=== PATIENT | female | born 1985 | race Caucasian/White ===

== ENCOUNTER 2017-07-26 19:01 | Observation (INO) ==
[2017-07-26] MEDS: Ondansetron 4 MG/2 ML VIAL IVP SCH (23:31)
[2017-07-26] MEDS: *HR* HYDROmorphone (PF) 1 MG/ML SYRINGE IVP PRN (23:32)
[2017-07-26] MEDS: cefOXitin 2,000 MG in D5% in Water (Mini-Bag+) 100 ML IVPB SCH (23:33)
[2017-07-26] MEDS: 0.9 % Sodium Chloride 1,000 ML IVC SCH (23:34)
[2017-07-27] MEDS: *HR* HYDROmorphone (PF) 1 MG/ML SYRINGE IVP PRN ×10 (01:58→23:40)
[2017-07-27] MEDS: Ondansetron 4 MG/2 ML VIAL IVP SCH (04:12)
[2017-07-27 07:12] LABS: Basophils # 0.1 K/mcL (0.0-0.2); Basophils % 0.4 %; Eosinophils # 0.4 K/mcL (0.0-0.6); Eosinophils % 2.7 %; Hematocrit 40.1 % (35.3-44.9); Hemoglobin 12.9 g/dL (11.5-15.4); Lymphocytes % 14.4 %; Mean Corpuscular HGB Conc 32.2 g/dL (31.6-35.5); Mean Corpuscular Hemoglobin 26.9 pg (28.0-33.3); Mean Corpuscular Volume 83.7 fL (83.0-100.0); Mean Platelet Volume 9.7 fL (9.4-12.4); Monocytes % 7.2 %; Neutrophils # 10.3 K/mcL (1.6-8.9); Platelet Count 314 K/mcL (140-400); Red Blood Count 4.79 M/mcL (3.82-4.97); Red Cell Distribution Width 13.8 % (11.5-14.5); Segmented Neutrophils % 74.3 %
[2017-07-27 07:17] LABS: Alanine Aminotransferase 11 Units/L (0-55); Albumin 2.9 g/dL (3.5-5.0); Albumin/Globulin Ratio 0.7 (1.1-2.2); Alkaline Phosphatase 85 Units/L (38-126); Amylase 71 Units/L (25-125); Aspartate Amino Transferase 14 Units/L (5-34); BUN/Creatinine Ratio 13 (6-26); Bilirubin,Direct 0.3 mg/dL (0.0-0.5); Bilirubin,Indirect 0.3 mg/dL (0.0-1.2); Bilirubin,Total 0.6 mg/dL (0.2-1.2); Blood Urea Nitrogen 10 mg/dL (7-20); Calcium 8.8 mg/dL (8.6-10.8); Carbon Dioxide 23 mEq/L (19-29); Chloride 106 mEq/L (98-109); Globulin 4.3 g/dL (2.4-3.5); Glucose 83 mg/dL (70-99); Lipase 17 Units/L (8-78); Osmolality,Calculated 280 (280-300); Potassium 3.8 mEq/L (3.5-4.5); Sodium 136 mEq/L (136-145); Total Protein 7.2 g/dL (6.0-8.3); eGFR For African Americans > 60 (> 60); eGFR For Non-African Americans > 60 (> 60)
[2017-07-27] MEDS ORDERED: Ondansetron 4 MG/2 ML VIAL IVP PRN ×2 (08:15→15:17)
[2017-07-27] MEDS: cefOXitin 2,000 MG in D5% in Water (Mini-Bag+) 100 ML IVPB SCH ×3 (08:18→23:40)
[2017-07-27] MEDS: 0.9 % Sodium Chloride 1,000 ML IVC SCH ×2 (08:21→15:54)
[2017-07-27] MEDS ORDERED: Acetaminophen 325 MG TABLET PO PRN ×2 (10:27→15:17)
[2017-07-27] MEDS ORDERED: *HR* OxyCODONE/APAP 5/325 TABLET PO PRN ×2 (10:27→15:17)
--- NOTE | 2017-07-27 10:32 | Event Note ---
Date of Encounter: 07/27/17 Time of Encounter: 10:30 Patient has been seen and evaluated by Dr. Harrington as an outpatient for symptomatic cholelithiasis. She presented to the ED last evening with worsening of symptoms. See History and Physical completed in [facility] on 07/21/[address] Harrington. A copy has been placed at the nurses station in the patient's folder as well as in the medical records folder to be scanned into medical records.
[2017-07-27] MEDS ORDERED: *HR* Midazolam HCl 2 MG/2 ML VIAL ONE (12:35)
[2017-07-27] MEDS ORDERED: *HR* Propofol 200 MG/20 ML VIAL IVP ONE (12:35)
[2017-07-27] MEDS ORDERED: *HR* FentaNYL (PF) 100 MCG/2 ML VIAL ONE ×2 (12:35→13:29)
[2017-07-27] MEDS ORDERED: *HR* Succinylcholine 200 MG/10 ML VIAL IVP ONE (12:36)
[2017-07-27] MEDS ORDERED: Lidocaine -MPF 2% 2 ML VIAL ONE (12:36)
[2017-07-27] MEDS ORDERED: Neostigmine Methylsulfate 3 MG/3 ML SYRINGE ONE (12:39)
[2017-07-27] MEDS ORDERED: *HR* Rocuronium Bromide 50 MG/5 ML VIAL ONE (12:39)
[2017-07-27] MEDS ORDERED: Lidocaine -MPF 4% 5 ML AMPUL ONE (12:39)
[2017-07-27] MEDS ORDERED: Dexamethasone 4 MG/ML VIAL ONE (12:39)
[2017-07-27] MEDS ORDERED: Ondansetron 4 MG/2 ML VIAL ONE (12:39)
[2017-07-27] MEDS ORDERED: Albuterol Neb 1.25 MG/3 ML VIAL IH ONE (12:46)
--- NOTE | 2017-07-27 12:46 | Anesthesia Evaluation PreOp ---
Date of Encounter: 07/27/17 Time of Encounter: 12:45 - Past History Planned Operation: la mateo Cardiac History: Denies any Significant Hx Pulmonary History: Smoker INCLUSION TEACHER History: Denies Any Significant HX Other Medical History: Denies Any Significant HX Anesthesia History: No Prior Anesthetic Complications, Past Anesthesia Alcohol Use: none Drug use: none Medications and Allergies Dicyclomine [Bentyl] 10 - 20 mg PO QID PRN #30 capsule 07/07/17 [Rx] Ondansetron ODT [Zofran ODT] 4 mg SL Q6HR PRN #8 tab.rapdis 07/07/17 [Rx] 3 Allergy/AdvReac Type Severity Reaction Status Date / Time No Known Allergies Allergy Verified 07/26/17 14:30 - Meds/Allergy Pre-op Review Medications Reviewed: Yes Allergies Reviewed: Yes Beta Blockers on Current Med List: No Anesthesia Results - Labs 07/27/17 06:06 07/27/17 06:06 Anesthesia Exam Selected Entries 07/27/17 10:31 Temperature 99.3 F Pulse Rate 70 Respiratory Rate 18 Blood Pressure 124/73 O2 Sat by Pulse Oximetry 98 Height: 104 kg NPO (# of Hours): over 8 hours - HEENT Pupil (Motor): Pupils equal Mallampati: I Teeth: Poor dentition Oral Opening: Greater than 3 - Cardiac Rhythm: Regular Murmur: None - Pulmonary Breath Sounds: bilateral Clear Respiratory Effort: Symmetrical Anesthesia Assess/Plan ASA Score: 2 Modified [place] Scale for Level of Consciousness: Cooperative, oriented, and tranquil Anesthetic Plan: General Monitoring Plan: Standard Monitors Recovery Plan: PACU
[2017-07-27] MEDS ORDERED: Albuterol 2.5 MG/3 ML NEBULIZER ONE (12:51)
--- NOTE | 2017-07-27 13:01 | History & Physical Report ---
Date of Encounter: 07/27/17 Time of Encounter: 13:00 24 Hour HP Update - Instructions Instructions: If the History and Physical is less than 30 days old and was completed prior to A.M. admission and or procedure and has NOT been updated on calendar day of procedure please complete this update prior to performing procedure. - Update Patient reports changes in Medical Condition: No Changes in examination, assessment, or condition: No Changes in Medication: No Preop tests/diagnostics Reviewed: Yes Surgery Remains Indicated: Yes Consent for Planned Operative Procedure(s) Verified: Yes - Pre-Operative Checklist Preoperative Checklist Indicated: Yes Prophylactic Antibiotic Ordered: Yes Home Medications Include Beta Willy: No Is VTE Prophylaxis Indicated?: Yes
--- NOTE | 2017-07-27 13:03 | General Surg History&Physical ---
Date of Encounter: 07/27/17 Time of Encounter: 13:00 Assessment and Plan (1) Acute cholecystitis Current Visit: Yes Status: Acute The assessment and plan as outlined above was discussed with the patient and/or family members who expressed understanding and agreement. All questions were answered. Cholelithiasis and acute cholecystitis. The patient is been treated with 2 doses of preoperative antibiotic now presents for urgent cholecystectomy History of Present Illness Chief complaint: Abdominal pain HPI: Ms. Reid is a 32 year old female Who is scheduled for elective cholecystectomy for cholelithiasis. She presented to the emergency room with acute right upper quadrant pain and leukocytosis. Diagnosis of acute cholecystitis was made. Patient was admitted for antibiotics for urgent cholecystectomy. Past Med Surg Social Fam HX - Past Medical History Medical history: no medical history, other Psychiatric history: no psych history - Social History Smoking Status: Current every day smoker Smokeless Tobacco Status: No Alcohol use: none Drug use: none - Family History Mother Living Status: Still Living Father Living Status: Cause of : unknown Medications and Allergies Dicyclomine [Bentyl] 10 - 20 mg PO QID PRN #30 capsule 07/07/17 [Rx] Ondansetron ODT [Zofran ODT] 4 mg SL Q6HR PRN #8 tab.rapdis 07/07/17 [Rx] 3 Allergy/AdvReac Type Severity Reaction Status Date / Time No Known Allergies Allergy Verified 07/26/17 14:30 Review of Systems All systems PM: A 10-system review of systems was performed and is negative for pertinent findings except as documented above in the HPI. General Surgery Exam Initial Vital Signs Temp Pulse Resp BP Pulse Ox 98.7 F 65 16 115/73 96 07/26/17 20:53 07/26/17 20:53 07/26/17 20:53 07/26/17 20:53 07/26/17 20:53 - General physical appearance moderate pain - ENT normal pinna, normal nares, normal mucosa, no hearing loss, no congestion - Respiratory normal expansion, normal respiratory effort, clear to percussion, clear to auscultation - Abdomen Abdomen general surgery: Present: tender Abdominal Tenderness: Present: RUQ - Neurologic Present: CN 2-12 grossly intact, normal coordination, normal sensation - Psychiatric Psychiatric general surgery: Present: appropriate, oriented to person, oriented to place, oriented to time, speech is normal, memory intact Results - Labs 07/27/17 06:06 07/27/17 06:06 Abnormal lab results WBC 13.8 K/mcL (4.3-11.1) H 07/27/17 06:06 MCH 26.9 pg (28.0-33.3) L 07/27/17 06:06 Neutrophils # 10.3 K/mcL (1.6-8.9) H 07/27/17 06:06 POC Glucose 93 (58-89) H 07/27/17 06:00 Albumin 2.9 g/dL (3.5-5.0) L 07/27/17 06:06 Globulin 4.3 g/dL (2.4-3.5) H 07/27/17 06:06 Albumin/Globulin Ratio 0.7 (1.1-2.2) L 07/27/17 06:06 Diabetes panel 07/27/17 Range/Units 06:06 Sodium 136 (136-145) mEq/L Potassium 3.8 (3.5-4.5) mEq/L Chloride 106 (98-109) mEq/L Carbon Dioxide 23 (19-29) mEq/L BUN 10 (7-20) mg/dL Creatinine 0.75 (0.57-1.11) mg/dL Glucose 83 (70-99) mg/dL Calcium 8.8 (8.6-10.8) mg/dL AST 14 (5-34) Units/L ALT 11 (0-55) Units/L Alkaline Phosphatase 85 (38-126) Units/L Albumin 2.9 L (3.5-5.0) g/dL Calcium panel 07/27/17 Range/Units 06:06 Calcium 8.8 (8.6-10.8) mg/dL Albumin 2.9 L (3.5-5.0) g/dL Pituitary panel 07/27/17 Range/Units 06:06 Sodium 136 (136-145) mEq/L Potassium 3.8 (3.5-4.5) mEq/L Chloride 106 (98-109) mEq/L Carbon Dioxide 23 (19-29) mEq/L BUN 10 (7-20) mg/dL Creatinine 0.75 (0.57-1.11) mg/dL Glucose 83 (70-99) mg/dL Calcium 8.8 (8.6-10.8) mg/dL Adrenal panel 07/27/17 Range/Units 06:06 Sodium 136 (136-145) mEq/L Potassium 3.8 (3.5-4.5) mEq/L Chloride 106 (98-109) mEq/L Carbon Dioxide 23 (19-29) mEq/L BUN 10 (7-20) mg/dL Creatinine 0.75 (0.57-1.11) mg/dL Glucose 83 (70-99) mg/dL Calcium 8.8 (8.6-10.8) mg/dL Total Bilirubin 0.6 (0.2-1.2) mg/dL AST 14 (5-34) Units/L ALT 11 (0-55) Units/L Alkaline Phosphatase 85 (38-126) Units/L Albumin 2.9 L (3.5-5.0) g/dL All other labs normal.
[2017-07-27] MEDS ORDERED: *HR* HYDROmorphone 2 MG/ML SYRINGE ONE (13:23)
[2017-07-27] MEDS ORDERED: Dexamethasone 4 MG/ML VIAL IVP ONE (13:34)
[2017-07-27] MEDS ORDERED: *HR* HYDROmorphone (PF) 1 MG/ML SYRINGE IVP PRN (13:34)
[2017-07-27] MEDS ORDERED: Ondansetron 4 MG/2 ML VIAL IVP ONE (13:34)
[2017-07-27] MEDS ORDERED: *HR* Promethazine 25 MG/ML VIAL IVP PRN (13:34)
[2017-07-27] MEDS ORDERED: *HR* Labetalol 20 MG/4 ML SYRINGE IVP PRN (13:34)
[2017-07-27] MEDS ORDERED: *HR* Meperidine 25 MG/ML SYRINGE IVP PRN (13:34)
[2017-07-27] MEDS ORDERED: Ketorolac 15 MG/ML VIAL IVP ONE (13:34)
--- NOTE | 2017-07-27 14:20 | Operative Note ---
Date of procedure: 07/27/17 Pre-op diagnosis: Acute cholecystitis, cholelithiasis Post-op diagnosis: same Procedure: Laparoscopic cholecystectomy, cholangiogram Anesthesia: MADELYN Surgeon: Samuel Harrington Estimated blood loss (cc): 20 Specimen: Gallbladder and contents Condition: stable Disposition: PACU Procedure in Detail: Laparoscopic cholecystectomy and intraoperative cholangiogram Operative procedure after informed consent and appropriate patient identification timeout the patient was taken to the major operating suite and placed supine position given adequate general endotracheal anesthesia the abdomen is prepped and draped in sterile fashion utilizing ChloraPrep standard draping techniques timeout was taken patient is identified. I made a vertical midline incision below the umbilicus dissected down to level of fascia there are 2 traction stitches placed in the abdominal cavity was entered visually. A Rhodes trocar was placed in the abdomen and the abdomen was insufflated to 15 mmHg pressure CO2 the gallbladder was visualized. A placement 11 port in the subxiphoid area and 2 5 mm ports in the subcostal area. . The gallbladder was completely obstructed and required decompression The gallbladder was grasped and elevated. A variety of blunt and sharp dissection techniques were used to isolate the cystic duct and cystic artery. The cystic artery was controlled with 2 surgical clips proximally and one distally and it was divided I placed a surgical clip on the neck the gallbladder and obtained an intraoperative cholangiogram using 10 mL of Isovue. Intraoperative cholangiogram was normal. The cholangiocatheter was removed and the cystic duct was controlled with 2 surgical clips proximally and was divided the gallbladder was removed from the gallbladder fossae using electrocautery. The gallbladder was removed through the #11 port site using a specimen bag. I replaced the #11 port and irrigated with copious amounts of antibiotic containing solution. There is no evidence of bleeding or bile leak. All trochars were removed. Fascia was closed with 0 Vicryl skin with 2-0 and 4-0 Vicryl she tolerated the procedure well and was transferred to recovery in stable condition
--- NOTE | 2017-07-27 15:03 | Anesthesia Evaluation Post Op ---
Date of Encounter: 07/27/17 Time of Encounter: 15:00 - Vital Signs Vital Signs: Selected Entries 07/27/17 14:52 Temperature 98.1 F Pulse Rate 86 Respiratory Rate 16 Blood Pressure 122/64 O2 Sat by Pulse Oximetry 93 - Lungs Lungs: Clear Ascult./Percussion - Airway Airway: Non-obstructed - Cardiovascular Regular Rate - Mental Status Mental Status: Alert & Oriented, Answers Appropriately - Nausea Vomiting Nausea Vomiting: Not Present - Hydration Hydration: NPO - Discharge PostOp Status: Transfer Patient to floor
[2017-07-28] MEDS: 0.9 % Sodium Chloride 1,000 ML IVC SCH (02:41)
[2017-07-28] MEDS: *HR* HYDROmorphone (PF) 1 MG/ML SYRINGE IVP PRN ×3 (02:41→08:12)
[2017-07-28 04:55] LABS: Basophils % 0.1 %; Eosinophils % 0.1 %; Hemoglobin 11.6 g/dL (11.5-15.4); Immature Granulocytes % 0.6 % (0-4); Lymphocytes # 1.1 K/mcL (0.6-4.6); Lymphocytes % 6.5 %; Mean Corpuscular HGB Conc 32.2 g/dL (31.6-35.5); Mean Corpuscular Hemoglobin 26.9 pg (28.0-33.3); Mean Corpuscular Volume 83.5 fL (83.0-100.0); Mean Platelet Volume 9.7 fL (9.4-12.4); Neutrophils # 14.8 K/mcL (1.6-8.9); Platelet Count 287 K/mcL (140-400); Red Blood Count 4.31 M/mcL (3.82-4.97); Red Cell Distribution Width 13.4 % (11.5-14.5); Segmented Neutrophils % 86.7 %
[2017-07-28 05:19] LABS: Alanine Aminotransferase 31 Units/L (0-55); Albumin 2.6 g/dL (3.5-5.0); Albumin/Globulin Ratio 0.6 (1.1-2.2); Alkaline Phosphatase 79 Units/L (38-126); Aspartate Amino Transferase 37 Units/L (5-34); BUN/Creatinine Ratio 12 (6-26); Bilirubin,Total 0.3 mg/dL (0.2-1.2); Blood Urea Nitrogen 8 mg/dL (7-20); Calcium 8.8 mg/dL (8.6-10.8); Carbon Dioxide 22 mEq/L (19-29); Chloride 107 mEq/L (98-109); Globulin 4.3 g/dL (2.4-3.5); Glucose 117 mg/dL (70-99); Osmolality,Calculated 279 (280-300); Potassium 4.5 mEq/L (3.5-4.5); Sodium 135 mEq/L (136-145); Total Protein 6.9 g/dL (6.0-8.3); eGFR For African Americans > 60 (> 60); eGFR For Non-African Americans > 60 (> 60)
[2017-07-28] MEDS: cefOXitin 2,000 MG in D5% in Water (Mini-Bag+) 100 ML IVPB SCH (07:41)
[2017-07-28] MEDS ORDERED: *HR* OxyCODONE/APAP 10/325 TABLET PO PRN (10:25)
[2017-07-28] MEDS ORDERED: Ibuprofen 800 MG TABLET PO SCH (10:30)
--- NOTE | 2017-07-28 10:40 | Discharge Summary ---
<Aminata Mullins Juan J - Last Filed: 07/28/17 10:35> Date of Encounter: 07/28/17 Time of Encounter: 10:20 - Discharge Diagnosis (1) Acute cholecystitis Priority: Primary Status: Resolved - Discharge Medications Prescriptions: OxyCODONE/APAP 10/325 [Percocet 10/325 MG] 1 each PO Q4HR PRN #30 tab PRN Reason: Moderate Pain Docusate [Colace] 100 mg PO BID #30 capsule Ibuprofen [Motrin] 800 mg PO TID #50 tab Home Medications: Dicyclomine [Bentyl] 10 - 20 mg PO QID PRN #30 capsule 07/07/17 [Rx] Ondansetron ODT [Zofran ODT] 4 mg SL Q6HR PRN #8 tab.rapdis 07/07/17 [Rx] Docusate [Colace] 100 mg PO BID #30 capsule 07/28/17 [Rx] Ibuprofen [Motrin] 800 mg PO TID #50 tab 07/28/17 [Rx] OxyCODONE/APAP 10/325 [Percocet 10/325 MG] 1 each PO Q4HR PRN #30 tab 07/28/17 [ Rx] Allergies/Adverse Reactions: 3 Allergy/AdvReac Type Severity Reaction Status Date / Time No Known Allergies Allergy Verified 07/26/17 14:30 General Surgery Exam Initial Vital Signs Temp Pulse Resp BP Pulse Ox 98.7 F 65 16 115/73 96 07/26/17 20:53 07/26/17 20:53 07/26/17 20:53 07/26/17 20:53 07/26/17 20:53 - General physical appearance well developed, well nourished, no distress - Eyes normal ocular movement - ENT normal mucosa, atraumatic, normocephalic - Neck trachea midline - Respiratory normal respiratory effort, clear to auscultation - Cardiovascular Cardiovascular exam: Present: RRR - Abdomen Abdomen general surgery: Present: bowel sounds present, soft, tender (Expected postoperative tenderness) - Incision Incision: Present: clean and dry, intact - Integumentary Integumentary general surgery: Present: warm and dry - Neurologic Present: CN 2-12 grossly intact - Psychiatric Psychiatric general surgery: Present: appropriate, oriented to person, oriented to place, oriented to time, speech is normal, memory intact Date of admission: 07/26/17 20:29 Primary care physician: Hiwot Enriquez Discharging clinician: Samuel Harrington (Renea Mullins) Anticipated date of discharge: 07/28/17 - Patient Status Disposition: Home, Self-Care Condition: Good Functional capacity at discharge: independent ambulation Overall status at discharge: patient is progressing back to baseline - Discharge Instructions Instructions: Cholecystitis (DC) Follow Up With: Aminata Mullins CNP [Advanced Practice Nurse] - 08/09/17 11:30 am (surgery follow-up) Forms: Work/School Release Additional Instructions: #1 may shower 07/28/17, no tub bath for 2 weeks #2 wash incisions with soap and water and pat dry daily #3 no lifting, pushing, pulling more than 15 pounds for the next 2 weeks #4 no driving until off narcotics for 24 hours and able to safely react in the car #5 may climb stairs - Diet and Activity Activity: other (See additional instructions above) Diet: advance to your usual diet - Hospital Course Hospital course: Ms. Reid is a 32 year old female who presented to the hospital with right upper quadrant abdominal pain with associated nausea and vomiting. She had previously been seen in the office by Dr. Harrington for symptomatic cholelithiasis. She was scheduled for outpatient surgery but reported to the emergency department with worsening symptoms. The patient was found to have acute cholecystitis and she was admitted to the hospital under Dr. Harrington's service. She was started on IV antibiotics. She was taken to the operating room for a laparoscopic cholecystectomy. On postoperative day #1, she is feeling much better and her pain has improved. Her post surgical pain is controlled with Percocet and ibuprofen. Her vital signs are stable and she is afebrile. She is voiding and ambulating without difficulty. She is tolerating a regular diet. We will begin discharge planning to home and plan for outpatient follow- up in the next 10-14 days. - Time Spent with Patient Total time spent providing and/or coordinating discharge services: Less than 30 minutes Labs on day of discharge: Labs from last 24 hours 07/28/17 07/28/17 07/27/17 04:20 04:20 10:42 WBC 17.1 H RBC 4.31 Hgb 11.6 Hct 36.0 MCV 83.5 MCH 26.9 L MCHC 32.2 RDW 13.4 Plt Count 287 MPV 9.7 Immature Gran % 0.6 Seg Neutrophils % 86.7 Lymphocytes % 6.5 Monocytes % 6.0 Eosinophils % 0.1 Basophils % 0.1 Neutrophils # 14.8 H Lymphocytes # 1.1 Monocytes # 1.0 Eosinophils # 0.0 Basophils # 0.0 Sodium 135 L Potassium 4.5 Chloride 107 Carbon Dioxide 22 BUN 8 Creatinine 0.68 Est GFR ( Amer) > 60 Est GFR (Non-Af Amer) > 60 BUN/Creatinine Ratio 12 Glucose 117 H POC Glucose 92 H Calculated Osmolality 279 L Calcium 8.8 Total Bilirubin 0.3 AST 37 H ALT 31 Alkaline Phosphatase 79 Serum Total Protein 6.9 Albumin 2.6 L Globulin 4.3 H Albumin/Globulin Ratio 0.6 L - Impressions ITS Impressions Cholangiogram,Operative 07/27/17 00:00 IMPRESSION: No common duct calculus or common bile duct dilatation identified. D/ / 07/27/2017 13:53:26 Steven Orosco MD / [email or web address] Interpreting Provider: Steven Orosco MD - Attending Attestation For this encounter, I have reviewed the ORTHOTIC AND PROSTHETIC TECHNICIAN or PA documentation, treatment plan, and medical decision making; and I have had face to face time with this patient. <Samuel Harrington - Last Filed: 07/28/17 15:27> Date of Encounter: 07/28/17 - Discharge Diagnosis (1) Acute cholecystitis Status: Resolved General Surgery Exam Initial Vital Signs Temp Pulse Resp BP Pulse Ox 98.7 F 65 16 115/73 96 07/26/17 20:53 07/26/17 20:53 07/26/17 20:53 07/26/17 20:53 07/26/17 20:53 Date of admission: 07/26/17 20:29 Primary care physician: Hiwot Enriquez - Hospital Course Hospital course: Ms. Reid is a 32 year old female - Time Spent with Patient Total time spent providing and/or coordinating discharge services: Labs on day of discharge: Labs from last 24 hours 07/28/17 07/28/17 07/27/17 04:20 04:20 10:42 WBC 17.1 H RBC 4.31 Hgb 11.6 Hct 36.0 MCV 83.5 MCH 26.9 L MCHC 32.2 RDW 13.4 Plt Count 287 MPV 9.7 Immature Gran % 0.6 Seg Neutrophils % 86.7 Lymphocytes % 6.5 Monocytes % 6.0 Eosinophils % 0.1 Basophils % 0.1 Neutrophils # 14.8 H Lymphocytes # 1.1 Monocytes # 1.0 Eosinophils # 0.0 Basophils # 0.0 Sodium 135 L Potassium 4.5 Chloride 107 Carbon Dioxide 22 BUN 8 Creatinine 0.68 Est GFR ( Amer) > 60 Est GFR (Non-Af Amer) > 60 BUN/Creatinine Ratio 12 Glucose 117 H POC Glucose 92 H Calculated Osmolality 279 L Calcium 8.8 Total Bilirubin 0.3 AST 37 H ALT 31 Alkaline Phosphatase 79 Serum Total Protein 6.9 Albumin 2.6 L Globulin 4.3 H Albumin/Globulin Ratio 0.6 L - Impressions ITS Impressions Cholangiogram,Operative 07/27/17 00:00 IMPRESSION: No common duct calculus or common bile duct dilatation identified. D/ / 07/27/2017 13:53:26 Steven Orosco MD / bcarter Interpreting Provider: Steven Orosco MD - Attending Attestation The patient is seen and evaluated on morning rounds. She is in excellent pain control incisions are healing normally. Discharge her this afternoon. I will see her back in the office in 2 weeks. Samuel Harrington MD FACS
[2017-07-28 11:17] VITALS: BP 109/70
== END 2017-07-28 13:26 | disposition home or self-care (01) ==
LOC: 3ANU
PROVIDERS: ADMIT Surgery; ATTEND Surgery